=== PATIENT | female | born 1980 | race Caucasian/White ===

== ENCOUNTER 2018-05-08 15:31 | Outpatient (CLI) | payer OTHER, SELFPAY ==
[2018-05-08 17:04] LABS: TSH (W/Ref FT4) 1.48 uIU/mL (0.358-3.74)
[2018-05-11 11:16] LABS: Prolactin 11.3 ng/ml
== END 2018-05-08 15:51 ==
PROVIDERS: Visit Provider Obstetrics & Gynecology
DX: N91.5 Oligomenorrhea, unspecified (principal)
CPT/HCPCS: 36415; 84146; 84443

== ENCOUNTER 2018-05-15 00:09 | Outpatient (CLI) | payer OTHER, SELFPAY ==
--- NOTE | 2018-05-15 07:00 | DI.US_ITS ---
SYMPTOMS/DIAGNOSIS: RT ADNEXAL FULLNESS, PELVIC AND PERINEAL PAIN, R10.2 PELVIC ULTRASOUND: Transabdominal and transvaginal exams were performed. The transabdominal images are limited by lack of bladder distention. The uterus measures 7.2 x 3.4 x 3.8 cm. No fibroids are seen. The endometrial stripe appears homogeneous and measures 7 mm in thickness. The right ovary is unremarkable. There is a 1.5 cm follicle on the left ovary. No suspicious mass is seen. There is no evidence of torsion. There is no free fluid. The kidneys are grossly normal. IMPRESSION: Pelvic ultrasound is within normal limits.
--- NOTE | 2018-05-15 09:15 | DI.MAMMO_ITS ---
SYMPTOM/DIAGNOSIS: BILAT BREAST MASSES, N63.0 MAMMOGRAMS: Mammograms were interpreted according to the usual protocol including computer analysis with CAD system, tomosynthesis and C view imaging. Comparison is made with prior examinations. Breast density, category D. No suspicious masses or microcalcifications are seen. There is an asymmetric density in the outer right breast seen on the craniocaudad view. There is also an asymmetric density seen in the medial left breast on the craniocaudad view. These areas should be further evaluated with spot compression views. Ultrasound may be indicated at that time. IMPRESSION: Bilateral additional views as described above. Category 0. MQSA ASSESSMENT OF FINDINGS: Incomplete: Needs additional imaging evaluation. Category 0. Patient will receive a letter notifying them of these results. BI-RADS category D. The breasts are extremely dense, which lowers the sensitivity of mammography.
== END 2018-05-15 00:29 ==
PROVIDERS: Visit Provider Obstetrics & Gynecology
DX: N63.20 Unspecified lump in the left breast, unspecified quadrant (principal); N63.10 Unspecified lump in the right breast, unspecified quadrant; R92.8 Other abnormal and inconclusive findings on diagnostic imaging of breast; R10.2 Pelvic and perineal pain; N83.02 Follicular cyst of left ovary
CPT/HCPCS: 77062; 77066; 76830; 76856; G0279

== ENCOUNTER 2018-05-27 01:20 | Outpatient (CLI) | payer OTHER, SELFPAY ==
--- NOTE | 2018-05-27 10:28 | DI.COMBO_ITS ---
SYMPTOMS/DIAGNOSIS: F/U ABNORMAL MAMMO, ASYMMETRIC DENSITY IN BILATERAL BREASTS MAMMOGRAMS: Additional images are interpreted according to the usual protocol including tomosynthesis and 2D imaging. The breast tissue is heterogeneously radiodense. The follow-up images today include craniocaudad compression spot films of both the right and left breasts. No discrete right or left breast mass or suspicious calcification is seen on the compression images. At ultrasound, echodense breast tissue is demonstrated involving the right breast. No discrete cyst or mass is identified. Evaluation of the left breast reveals multiple periareolar small cysts, at least six of which could be identified and measured. The largest cyst has a maximal diameter of approximately 6 mm and lies in the lower inner quadrant. SUMMARY: Radiodense and echodense breast tissue is demonstrated in this patient. There are numerous periareolar left breast cysts, the smallest of which are hard to fully characterize, and follow-up evaluation of this patient with a repeat left breast ultrasound is recommended in six months. Category 3, breast density category D. MQSA ASSESSMENT OF FINDINGS: Probably benign. Six month follow-up recommended. Category 3. Patient will receive a letter notifying them of these results. BI-RADS category D. The breasts are extremely dense, which lowers the sensitivity of mammography.
== END 2018-05-27 01:40 ==
PROVIDERS: Visit Provider Obstetrics & Gynecology
DX: Z12.31 Encounter for screening mammogram for malignant neoplasm of breast (principal); R92.8 Other abnormal and inconclusive findings on diagnostic imaging of breast; N60.12 Diffuse cystic mastopathy of left breast
CPT/HCPCS: 76642; 77063; 77067

== ENCOUNTER 2018-11-23 00:33 | Outpatient (CLI) | payer OTHER, SELFPAY ==
--- NOTE | 2018-11-23 10:16 | DI.US_ITS ---
SYMPTOM/DIAGNOSIS: ABNL FINDINGS ON BREAST IMAGING R92.8 6-MONTH FOLLOW UP LEFT BREAST ULTRASOUND: Comparison 05/27/18 There are again seen several well circumscribed round anechoic lesions in the left periareolar region. They are avascular. No solid component, posterior acoustic enhancement or shadowing is seen. No echogenic areas are seen to suggest associated calcifications. IMPRESSION: Stable left breast ultrasound with multiple cysts, the largest measuring 0.6 cm.
== END 2018-11-23 00:53 ==
PROVIDERS: Visit Provider Obstetrics & Gynecology
DX: Z12.31 Encounter for screening mammogram for malignant neoplasm of breast (principal); R92.8 Other abnormal and inconclusive findings on diagnostic imaging of breast; N60.12 Diffuse cystic mastopathy of left breast
CPT/HCPCS: 76642

== ENCOUNTER 2019-07-05 11:29 | Outpatient (REF) | payer BC, SELFPAY ==
--- NOTE | 2019-07-05 09:15 | PAPFT_PTH ---
PATIENT: Marisela Diamond LOC: [facility] U#:[id number] AGE/SX: 38/F ROOM: RE07/05/[address]: Diana Jones NP : 1980 BED: DIS: 07/05/2019 SPEC #: [id number] RECD: 07/05/19 13:02 STATUS: MARY ROJAS #: [id number] MARLON: 07/05/19 09:[address]: Diana Jones NP DEPT: [facility] Cytology RECD BY: Daniela Rahman ENTERED: 07/05/19 13:03 SP TYPE: PAPFT GAMALIEL DR: None Tissues: 1 - CX/ENDOCX FOR PAP SMEARS Procedures: PAP THIN PREP/UVM Screening HPV DNA PROBE Comments: [id number]
== END 2019-07-05 11:49 ==
LOC: LBN 11:29
PROVIDERS: Visit Provider Nurse Practitioner Women's Health
DX: Z12.4 Encounter for screening for malignant neoplasm of cervix (principal); Z11.51 Encounter for screening for human papillomavirus (HPV)
CPT/HCPCS: 88142; 87624

== ENCOUNTER 2020-07-06 02:52 | Outpatient (CLI) | payer BC, SELFPAY ==
--- NOTE | 2020-07-06 07:00 | DI.US_ITS ---
EXAM: MG MAMMO SCREENING and bilateral breast ultrasound CLINICAL HISTORY: screening,family h/o breast ca, h/o breast lumps previously. TECHNIQUE: Craniocaudal and mediolateral oblique Full Field Digital Mammography views with Computer Aided Diagnosis followed by Tomosynthesis and bilateral breast ultrasound. COMPARISON: Comparison with prior examinations. FINDINGS: Mammography/Tomosynthesis: Masses/Architectural Distortion: None seen. Microcalcifictions: No suspicious pleomorphic-type are seen. Skin Thickening/Nipple Retraction: None. Bilateral breast US: All 4 quadrants of both breast were evaluated sonographically. Echotexture: Normal appearance of the glandular tissue. Shadowing: No suspicious foci. Cyst: Several unremarkable cysts are seen at the 7 and 8 o'clock position of the left breast. The la rgest is seen at the 7 o'clock position of the left breast 4 cm from the nipple and measures 0.6 x 0. 4 x 0.5 cm. No suspicious cystic lesions are seen in the right or left breast. Solid lesions: None seen. Ductal dilation: None. IMPRESSION: 1. No evidence of malignancy is noted. 2. Unless there is more urgent need, follow-up screening mammography is recommended, as per [place] [employer] guidelines. 3. The findings were discussed with the patient on the date of the examination. BI-RADS Category 2 - Benign Findings Breast Density - Category C - Heterogeneously dense Breast density Category C or D implies that the patient has dense breast tissue. Dense breast tissue can make it harder to find cancer on a mammogram. Dense breast tissue is also associated with an incr eased risk of breast cancer. This information about the result of the mammogram report was provided to the patient to raise their awareness. Use this report when you speak with the patient about their risks for breast cancer, which includes their family history. At that time, you may recommend additional screening tests (Ultrasoun d or MRI) as these tests may add significant information. A negative radiographic report should not delay biopsy if a dominant or clinically suspicious mass is present. Up to ten percent of cancers are not identified on mammography. A negative report may reinforce clinical impression. Adenosis and dense breasts may obscure an underlying neoplasm. False positive reports average 6 to 10%. Patient will receive a letter notifying them of these results.
== END 2020-07-06 03:12 ==
PROVIDERS: Visit Provider Nurse Practitioner Women's Health
DX: Z12.31 Encounter for screening mammogram for malignant neoplasm of breast (principal); Z80.3 Family history of malignant neoplasm of breast; N60.02 Solitary cyst of left breast
CPT/HCPCS: 76642; 77063; 77067

== ENCOUNTER → 2022-01-01 01:49 | Outpatient (CLI) | payer BC, SELFPAY ==
--- NOTE | 2022-01-01 12:15 | DI.MAMMO_ITS ---
Exam(s) MAMMO SCREENING EXAM: MAMMO SCREENING CLINICAL HISTORY: screening TECHNIQUE: Mammograms were interpreted according to the usual protocol including computer analysis w [employer] CAD system, tomosynthesis and C-view imaging. COMPARISON: FINDINGS: The breasts are heterogeneously dense. No dominant mass or clumped microcalcification is identified in either breast. The current examination is compared with previous examinations including July and there has been no gross interval change in appearance in comparison with the previous studies. IMPRESSION: No specific evidence of malignancy at this time. Routine screening examinations are suggested at yea rly intervals due to the family history of breast carcinoma. BI-RADS Category 1 - Negative Breast Density - Category C - Heterogeneously dense
== END ==
PROVIDERS: Visit Provider Nurse Practitioner Family
DX: Z12.31 Encounter for screening mammogram for malignant neoplasm of breast (principal); Z80.3 Family history of malignant neoplasm of breast
CPT/HCPCS: 77063; 77067

== ENCOUNTER 2023-12-03 12:09 | Outpatient (REF) | payer MEDICAID, SELFPAY ==
--- NOTE | 2023-12-03 11:15 | PAPFT_PTH ---
PATIENT: Marisela Diamond LOC: [facility] U#:[id number] AGE/SX: 43/F ROOM: RE12/03/[address]: Diana Jones NP : 1980 BED: DIS: 12/03/2023 SPEC #: [id number] RECD: 12/03/23 13:14 STATUS: MARY REMel #: [id number] MARLON: 12/03/23 11:[address]: Robert GALO,Diana DEPT: [facility] Cytology RECD BY: Daniela Rahman ENTERED: 12/03/23 13:14 SP TYPE: PAPFT OT DR: Unknown,Unknown Tissues: 1 - CX/ENDOCX FOR PAP SMEARS Procedures: PAP THIN PREP/UVM Screening Comments: [id number]
== END 2023-12-03 12:10 | disposition home or self-care (01) ==
LOC: LBN 12:09
PROVIDERS: Visit Provider Nurse Practitioner Women's Health
DX: Z12.4 Encounter for screening for malignant neoplasm of cervix (principal)
CPT/HCPCS: 88142

== ENCOUNTER 2023-12-03 16:03 | Outpatient (CLI) | payer MEDICAID, SELFPAY | END 2023-12-03 16:04 | disposition home or self-care (01) | LOC: LBO 16:03 | PROVIDERS: Visit Provider Nurse Practitioner Women's Health | DX: R63.4 Abnormal weight loss (principal); Z01.419 Encounter for gynecological examination (general) (routine) without abnormal findings; N93.9 Abnormal uterine and vaginal bleeding, unspecified; Z12.4 Encounter for screening for malignant neoplasm of cervix; Z30.011 Encounter for initial prescription of contraceptive pills | CPT/HCPCS: 36415; 84443 ==